=== PATIENT | female | born 1965 | race Caucasian/White ===

== ENCOUNTER → 2018-06-17 | Outpatient (CLI) | payer SELFPAY ==
--- NOTE | 2018-06-17 15:04 | PCVCIMAG ---
APPROVED REPORT Study performed: 06/17/2018 13:58:58 EXAM: Comprehensive 2D, Doppler, and color-flow Echocardiogram Patient Location: Echo lab Status: routine BSA: 1.60 HR: 60 bpmBP: 104/68 mmHg Rhythm: NSR Other Information Study Quality: Adequate Indications Research Study 2D Dimensions RVDd: 25.55 mmLVEF(%): 63.79 (>50%) IVSd: 8.78 (7-11mm)LVOT Diam: 22.40 (18-24mm) LVDd: 49.42 mm PWd: 7.89 (7-11mm)Ascending Ao: 31.35 (22-36mm) LVDs: 32.23 (25-40mm) Left Atrium: 32.10 (27-40mm) LV Single Plane 4CH: 59.64 % LV Single Plane 2CH: 59.90 %Asif's LVEF: 59.77 % Biplane EF: 59.2 % Volumes Left Atrial Volume (Systole) Single Plane 4CH: 35.84 mLSingle Plane 2CH: 49.78 mL LA ESV Index: 29.00 mL/m2 Aortic Valve AoV Peak Palomo.: 1.63 m/s AO Peak Gr.: 10.68 mmHgLVOT Max P.12 mmHg LVOT Max V: 1.13 m/s FREDDIE Vmax: 2.73 cm2 Mitral Valve E/A Ratio: 1.2 MV Decel. Time: 224.75 ms MV E Max Palomo.: 0.80 m/s MV A Palomo.: 0.65 m/s MV PHT: 65.18 ms TDI E/Lateral E': 7.27E/Medial E': 7.27 Medial E' Palomo.: 0.11 m/s Lateral E' Palomo.: 0.11 m/s Pulmonary Valve PV Peak Gr.: 2.18 mmHg Pulmonary Vein P Vein S: 0.64 m/sP Vein A: 0.34 m/s P Vein D: 0.47 m/sP Vein A Dur.: 83.0 msec P Vein S/D Ratio: 1.36 Tricuspid Valve TR Peak Palomo.: 2.39 m/s TR Peak Gr.: 22.79 mmHg Left Ventricle The left ventricle is normal size. There is normal LV segmental wall motion. There is normal left ventricular wall thickness. Left ventricular systolic function is normal. The left ventricular ejection fraction is within the normal range. LVEF is 60-65%. The left ventricular diastolic function is normal. Right Ventricle The right ventricle is normal size. The right ventricular systolic function is normal. Atria The left atrium size is normal. The right atrium size is normal. Aortic Valve The aortic valve is normal in structure. No aortic regurgitation is present. There is no aortic valvular stenosis. Mitral Valve The mitral valve is normal in structure. Mild mitral regurgitation. No evidence of mitral valve stenosis. Tricuspid Valve The tricuspid valve is normal in structure. Mild tricuspid regurgitation. Pulmonary artery pressure is 30mmhg. Pulmonic Valve The pulmonary valve is normal in structure. There is no pulmonic valvular regurgitation. Great Vessels The aortic root is normal in size. IVC is normal in size and collapses with >50% inspiration Pericardium There is no pericardial effusion. <Conclusion> The left ventricle is normal size. LVEF is 60-65%. The left ventricular diastolic function is normal. The right ventricular systolic function is normal. The left atrium size is normal. The aortic valve is normal in structure. Mild mitral regurgitation. Mild tricuspid regurgitation. Pulmonary artery pressure is 30mmhg. The aortic root is normal in size. There is no pericardial effusion.
== END | disposition home or self-care (01) ==
LOC: PCVCIMAG 17:31
PROVIDERS: ATTEND Internal Medicine Nephrology
DX: I08.1 Rheumatic disorders of both mitral and tricuspid valves (principal)
CPT/HCPCS: 93306